=== PATIENT | male | born 1950 | race African-American/Black ===

== ENCOUNTER → 2016-10-02 | Outpatient (CLI) | payer OTHER | LOC: HYPER 07:08 → EDBD 07:08 → HYPER 12:03 | DX: I87.313 Chronic venous hypertension (idiopathic) with ulcer of bilateral lower extremity (principal); L97.312 Non-pressure chronic ulcer of right ankle with fat layer exposed; L97.321 Non-pressure chronic ulcer of left ankle limited to breakdown of skin ==

== ENCOUNTER → 2016-10-09 | Outpatient (CLI) | payer OTHER | LOC: HYPER 07:01 | DX: I87.313 Chronic venous hypertension (idiopathic) with ulcer of bilateral lower extremity (principal); L97.311 Non-pressure chronic ulcer of right ankle limited to breakdown of skin; L97.321 Non-pressure chronic ulcer of left ankle limited to breakdown of skin ==

== ENCOUNTER → 2016-10-16 | Outpatient (CLI) | payer BC | LOC: HYPER 06:58 | DX: I87.313 Chronic venous hypertension (idiopathic) with ulcer of bilateral lower extremity (principal); L97.311 Non-pressure chronic ulcer of right ankle limited to breakdown of skin; L97.321 Non-pressure chronic ulcer of left ankle limited to breakdown of skin ==